=== PATIENT | male | born 2000 | race Caucasian/White ===

== ENCOUNTER 2022-01-05 09:42 | Day surgery (SDC) | payer OTHER ==
[~2022-01-05] VITALS: Ht 172.7 cm; Wt 78.0 kg
[~2022-01-05 09:42] MED LIST: CETI10CH PO; CLAR10CA3 PO; FAMO40TA3 PO; NS 1,000 ML IV ONE; PANT20TA6 PO
[2022-01-05] MEDS ORDERED: LIDOCAINE 2% 100MG/5ML SDV (FOR ANES.) As Ordered ONE (12:08)
[2022-01-05] MEDS ORDERED: propofoL 200 MG/20 ML VIAL As Ordered ONE ×2 (12:08→12:09)
[2022-01-05] MEDS ORDERED: fentaNYL 100 MCG/2 ML INJECTION As Ordered ONE (12:08)
[2022-01-05 12:48] VITALS: BP 123/66
== END 2022-01-05 12:51 | disposition home or self-care (01) ==
LOC: M OPP 09:42
PROVIDERS: ATTEND Internal Medicine Gastroenterology
DX: K22.89 Other specified disease of esophagus (principal); K58.9 Irritable bowel syndrome, unspecified; Q39.8 Other congenital malformations of esophagus; Z79.2 Long term (current) use of antibiotics; Z79.899 Other long term (current) drug therapy; Z88.0 Allergy status to penicillin; Z88.1 Allergy status to other antibiotic agents; Z80.0 Family history of malignant neoplasm of digestive organs; Z80.42 Family history of malignant neoplasm of prostate
CPT/HCPCS: 43239; 88305; J3010

== ENCOUNTER → 2023-07-23 | Outpatient (REF) ==
[~2023-07-23] MED LIST changes: -NS 1,000 ML IV ONE
== END ==
LOC: M PLAIMG 14:05
PROVIDERS: ATTEND Internal Medicine
DX: R52 Pain, unspecified (principal)

== ENCOUNTER → 2024-12-23 | Outpatient (REF) | payer MEDICAID, OTHER ==
[2024-12-23 18:07] LABS: APPEARANCE, URINE HAZY (CLEAR); BACTERIA, URINE AUTO NEGATIVE (NEGATIVE); BILIRUBIN, URINE AUTO NEGATIVE (NEGATIVE); BLOOD, URINE BLOOD NEGATIVE (NEGATIVE); CALCIUM OXALATE CRYSTALS SMALL; GLUCOSE, URINE (UA) AUTO NEGATIVE (NEGATIVE); KETONE, URINE AUTO NEGATIVE (NEGATIVE); LEUKOCYTE ESTERASE, URINE AUTO NEGATIVE (NEGATIVE); MUCUS, URINE SMALL (NEGATIVE); NITRITE, URINE AUTO NEGATIVE (NEGATIVE); PROTEIN, URINE AUTO NEGATIVE (NEGATIVE); RBC, URINE AUTO 8 /HPF (0-3); SPECIFIC GRAVITY URINE AUTO 1.029 (1.002-1.035); SQUAMOUS EPITHELIAL CELL UR AU 0 /HPF (0-6); UROBILINOGEN, URINE AUTO 4.0 mg/dL (0.0-2.0); WBC, URINE AUTO 1 /HPF (0-3)
== END ==
LOC: M SMT 17:02
PROVIDERS: ATTEND Nurse Practitioner Family
DX: R30.0 Dysuria (principal)